=== PATIENT | female | born 1945 | race Caucasian/White ===

== ENCOUNTER → 2018-12-30 | Outpatient (CLI) | payer MEDICARE, BC ==
[~2018-12-30] MED LIST: ALLEGRA-D TABLE1 TAB PO; ANTIVERT 25MG25 MG PO; APRESOLINE 25MG25 MG PO; ASPIRIN 32325 MG/TAB PO; BACTRIM DS 8001 TAB PO; CATAPRES 0.1MG0.1 MG PO; CIPRO750 MG PO; CLEOCIN HCL300 MG PO; COUMADIN 3MG3 MG/TAB PO; FERRO-TIME325 MG PO; KENALOG DENTAL P5 GM DT; LISINOPRIL10 MG PO; LOPRESSOR 225 MG/TAB PO; LOPRESSOR 550 MG/TAB PO; LORTAB 7.5/5001 TAB PO; METOPROLOL; MVI PO; NORCO 325 MG-51 TAB PO; NORVASC 5MG5 MG/TAB PO; NORVASC2.5 MG PO; PRINIVIL40 MG PO; TAPAZOLE5 MG PO; TRANSDERM-0.5 MG/21 TD; TRIAM/HCTZ; VALIUM 5MG T5 MG/TAB PO; ZESTRIL 10MG10 MG PO; ZESTRIL40 MG PO; ZOFRAN 4MG T4 MG/TAB PO; ZOFRAN ODT4 MG PO
== END ==
LOC: ZCOL.LAB 10:06
DX: L97.909 Non-pressure chronic ulcer of unspecified part of unspecified lower leg with unspecified severity (principal)

== ENCOUNTER → 2019-02-17 | Outpatient (CLI) | payer MEDICARE, BC | LOC: ZCOL.LAB 11:54 | DX: L97.909 Non-pressure chronic ulcer of unspecified part of unspecified lower leg with unspecified severity (principal) ==

== ENCOUNTER → 2019-09-18 | Outpatient (CLI) | payer MEDICARE, BC | LOC: ZCOL.LAB 16:53 | DX: L97.909 Non-pressure chronic ulcer of unspecified part of unspecified lower leg with unspecified severity (principal); T14.8XXA Other injury of unspecified body region, initial encounter ==

== ENCOUNTER 2019-09-28 16:55 | Inpatient (IN) | payer MEDICARE, BC ==
[~2019-09-28] VITALS: Ht 177.8 cm; Wt 66.5 kg
[2019-09-28 17:18] LABS: BASO % 0.4 % (0.0-2.0); EOS # 0.1 (0.0-0.7); EOS % 1.3 % (0-4.0); GRAN # 7.5 (1.4-6.5); GRAN % 71.6 % (42.2-75.2); HEMATOCRIT 39.9 % (37.0-47.0); HEMOGLOBIN 12.8 g/dl (12.5-16.0); LYMPH # 2.3 (1.2-3.4); MEAN CELL VOLUME 85 fl (80.0-100.0); MEAN CORPUSCULAR HEMOGLOBIN 27 pg (27.0-31.0); MEAN CORPUSCULAR HGB CONC 32 g/dl (33.0-37.0); MEAN PLATELET VOLUME 8.9 fl (7.4-10.4); MONO # 0.5 (0.1-0.6); MONO % 4.3 % (1.7-9.3); PLATELET COUNT 313 K/mm3 (130-400); RED BLOOD COUNT 4.72 M/mm3 (4.10-5.30); REDCELL DISTRIBUTION WIDTH-CV 14.3 % (11.5-14.5)
[2019-09-28 17:36] LABS: ALANINE AMINOTRANSFERASE 15 U/L (4-34); ALBUMIN 4.3 gm/dL (3.5-5.0); ALKALINE PHOSPHATASE 127 U/L (50-136); ANION GAP 10 mmol/L (7-16); AST,SGOT 29 U/L (15-37); BILIRUBIN,TOTAL 0.5 mg/dL (0.0-1.0); BLOOD UREA NITROGEN 27 mg/dL (7-17); CALCIUM 10.6 mg/dL (8.4-10.2); CARBON DIOXIDE 18 mmol/L (22-30); CHLORIDE 101 mmol/L (98-107); CREATININE, serum 2.21 (0.52-1.25); GLUCOSE 145 mg/dL (74-106); LIPASE 325 U/L (23-300); MAGNESIUM 2.8 mg/dL (1.6-2.3); SODIUM 129 mmol/L (137-145); TOTAL PROTEIN 7.9 gm/dL (6.4-8.2)
[2019-09-28 17:38] LABS: C-REACTIVE PROTEIN < 0.5 mg/dL (0.0-0.9); POTASSIUM 5.8 mmol/L (3.4-5.0)
[2019-09-28] MEDS ORDERED: NORMODYNE100 MG PO (20:59)
[2019-09-28] MEDS ORDERED: ANTIVERT 25MG25 MG PO (21:00)
--- NOTE | 2019-09-28 21:19 | NUR ---
Pt arrived to floor at 2039 from ED. Assessment completed and documented. Pt alert and oriented x4. Pt oriented to room and call light. Denies pain at this time. Skin assessment completed documented. IV to left ac patent and without complications. Pt is currently on the bedside commode and is having a large amount of liquid bowel movement with a very small amount of solid bowel. States she would like to sit on the commode a little while longer. Call light within reach. Will continue to monitor.
--- NOTE | 2019-09-28 21:24 | NUR ---
BG 67 AT THIS TIME. APPLE JUICE GIVEN
[2019-09-28 21:54] VITALS: BP 171/57; PULSE 57; TEMP 97.6
[2019-09-28 22:20] LABS: CALCIUM 9.7 mg/dL (8.4-10.2); CREATININE, serum 1.94 (0.52-1.25); POTASSIUM 4.5 mmol/L (3.4-5.0)
[2019-09-29] VITALS (7 sets, daily range): BP systolic 145–159; BP diastolic 47–63; PULSE 70–85; TEMP 97.8–98.7
[2019-09-29 00:54] LABS: CALCIUM 9.3 mg/dL (8.4-10.2); CREATININE, serum 1.94 (0.52-1.25); POTASSIUM 4.6 mmol/L (3.4-5.0)
--- NOTE | 2019-09-29 05:15 | NUR ---
Pt rested on and off throughout the night. Pt up to bedside commode twice during the night and had two very large watery bowel movements with a small amount of solid bowel. Complaints of lower abdominal pain that was rated 1/10. Pt stated pain was tolerable and that she did not want anything for pain. IVF infusing per orders to left ac IV site. Pt denies any other needs. Bed alarm on. Call light within reach.
[2019-09-29 07:15] LABS: CALCIUM 8.7 mg/dL (8.4-10.2); CREATININE, serum 1.81 (0.52-1.25); POTASSIUM 4.8 mmol/L (3.4-5.0)
[2019-09-29 07:23] LABS: BASO % 0.2 % (0.0-2.0); EOS % 0.1 % (0-4.0); GRAN # 16.2 (1.4-6.5); GRAN % 87.7 % (42.2-75.2); HEMOGLOBIN 11.2 g/dl (12.5-16.0); LYMPH # 1.5 (1.2-3.4); LYMPH % 8.1 % (20.0-51.0); MEAN CELL VOLUME 86 fl (80.0-100.0); MEAN CORPUSCULAR HEMOGLOBIN 28 pg (27.0-31.0); MEAN CORPUSCULAR HGB CONC 33 g/dl (33.0-37.0); MEAN PLATELET VOLUME 9.2 fl (7.4-10.4); MONO # 0.6 (0.1-0.6); MONO % 3.5 % (1.7-9.3); PLATELET COUNT 256 K/mm3 (130-400); REDCELL DISTRIBUTION WIDTH-CV 14.4 % (11.5-14.5)
--- NOTE | 2019-09-29 07:23 | NUR ---
Report given to NICKOLAS Paige
[2019-09-29 07:38] LABS: HEMATOCRIT 34.4 % (37.0-47.0)
--- NOTE | 2019-09-29 10:34 | NUR ---
Assessment complete. Patient sitting up in bed, she is alert and oriented. Friend is currently at the bed side and had provided her home medications, will add to medication rec. She states she is feeling much better than she did yesterday. States she is passing gas. Did not want to take laxitives due to the large amount of stool she passed last night. Assessed her wounds, they are closed and CD&I. Dressing on left barker is intact and fresh from overnight. Abdomen is still firm and slightly distended at this time but patient states it has improved very much since yesterday. No other needs were expressed at this time. Call light is in reach. Will continue to monitor.
[2019-09-29] MEDS ORDERED: TRANSDERM-0.5 MG/21 TD (11:01)
--- NOTE | 2019-09-29 13:45 | NUR ---
SW met with the patient to discuss discharge plan. The patient lives alone in [place]. She states that she has a friend, Matt Florentino (ph#[phone]), that lives in [place] that helps her. She reports independence with ADLs and has a cane and walker. The patient's PCP is Dr. Javon Null and she receives her medications at [facility]. She reports no difficulties obtaining her meds. The patient's advanced directives are in EMR. Her DPOA-HC is her friend, Jase Bond (ph#[phone]). Jase lives in [place]. PT is not recommending any services. OT recommended home health. SW discussed this with the patient. The patient reports that she is not interested in any home health and does not feel like she has a need for it at this time. The patient plans to return home upon discharge with transport provided by her friend, Matt. No additional needs at this time.
--- NOTE | 2019-09-29 17:39 | NUR ---
Pt has had no complaints through the day left AC IV site began to bother and was begining to become edematous and pink, this IV was removed and new was placed in her Right forarm. New IV flushed well and pt was experiencing minimal pain. Continuing to monitor. Offered pt warm press or ice pack for tender AC site, she refused this stating she did not need it. States she gets some gas pain but it is relieved when she releases/passes gas. Abdomen is still a little distended. No other needs were expressed at this time. call light is in reach.
[2019-09-29 21:31] LABS: COLLECTION METHOD CATHETER
[2019-09-29 21:44] LABS: PH 5 (5-8); SQUAMOUS EPITHELIAL None Seen /hpf; URINE APPEARANCE Clear; URINE BACTERIA Rare /hpf; URINE BILIRUBIN Negative (NEGATIVE); URINE BLOOD Negative (NEGATIVE); URINE COLOR Yellow; URINE GLUCOSE Negative (NEGATIVE); URINE KETONE Negative (NEGATIVE); URINE LEUKOCYTE ESTERASE Negative (NEGATIVE); URINE NITRATE Negative (NEGATIVE); URINE PROTEIN(semi-quant) Negative (NEGATIVE); URINE RBC 0-2 /hpf; URINE UROBILINOGEN Negative (NEGATIVE)
--- NOTE | 2019-09-29 23:54 | NUR ---
DRESSING CHANGED ON HER LEFT LEG. SMALL AMOUNT OF DRAINAGE NOTED ON THE OLD BANDAGE. CLEANSED WITH SALINE WATER AND NEW BANDAGE WAS APPLIED
[2019-09-30 03:29] VITALS: BP 164/62; PULSE 73; TEMP 98.4
--- NOTE | 2019-09-30 05:14 | NUR ---
PATIENT HAS BEEN RESTING THROUGH THE NIGHT. PATIENT DID HAVE A BOWEL MOVEMENT AT THE BEGINNING OF THE SHIFT AND SINCE THEN HAS NOT. PATIENT DID URINATE SO A URINE SAMPLE WAS OBTAINED AND SENT TO LAB. IV FLUIDS ARE INFUSING IN HER IV ON HER RIGHT FOREARM. PATIENT HAS DENIED ANY OTHER NEEDS. WILL REPORT OFF TO DAY SHIFT.
[2019-09-30 07:56] VITALS: BP 184/69; PULSE 83; TEMP 98.3
--- NOTE | 2019-09-30 08:23 | NUR ---
Assessment complete. Patient sitting up in bed with breakfast at this time. States she did not feel very well over night but has improved since this morning. Left AC site has improved since yesterday, minimal swelling and minor redness, pt states it feels much better. States she continues to have gas. Wounds on her legs are unchanged since yesterady, dressing is fresh from overnight. No signs of drainage. Denies pain or discomfort at this time. No other needs were expressed at this time. Call light is in reach. Will continue to monitor.
[2019-09-30 08:50] LABS: BASO % 0.3 % (0.0-2.0); EOS # 0.1 (0.0-0.7); EOS % 0.5 % (0-4.0); GRAN # 8.8 (1.4-6.5); HEMOGLOBIN 10.9 g/dl (12.5-16.0); LYMPH # 2.5 (1.2-3.4); LYMPH % 20.6 % (20.0-51.0); MEAN CELL VOLUME 87 fl (80.0-100.0); MEAN CORPUSCULAR HEMOGLOBIN 28 pg (27.0-31.0); MEAN CORPUSCULAR HGB CONC 32 g/dl (33.0-37.0); MEAN PLATELET VOLUME 8.9 fl (7.4-10.4); MONO # 0.6 (0.1-0.6); MONO % 5.2 % (1.7-9.3); PLATELET COUNT 237 K/mm3 (130-400); RED BLOOD COUNT 3.93 M/mm3 (4.10-5.30); REDCELL DISTRIBUTION WIDTH-CV 14.6 % (11.5-14.5)
[2019-09-30 09:04] LABS: CALCIUM 8.4 mg/dL (8.4-10.2); CREATININE, serum 1.21 (0.52-1.25); MAGNESIUM 1.6 mg/dL (1.6-2.3); POTASSIUM 3.9 mmol/L (3.4-5.0)
[2019-09-30 11:42] VITALS: BP 147/54; PULSE 67; TEMP 98
--- NOTE | 2019-09-30 14:47 | NUR ---
pT AMBULATED WELL TO THE RESTROOM AT THIS TIME VIA STANDY ASSIST USING HER CANE FROM HOME. GAIT WAS VERY STEADY, NO LOSS OF BALANCE. HAD LARGE SOFT FORMED BM. BACK IN CHAIR WITH PAZ ALARM IN PLACE. NO FURTHER NEEDS CALL LIGHT IS IN REACH.
[2019-09-30 16:02] VITALS: BP 158/73; PULSE 102; PULSE 73; TEMP 97.9; TEMP 98.3
--- NOTE | 2019-09-30 17:22 | NUR ---
LEFT NINO WOUND/ULCER DRESSING CHANGED, SCANT DRAINAGE. STERILE WATER USED TO CLEANSE. PT TOLERATED WELL NO REPORTS OF PAIN OR DISCOMFORT.
[2019-09-30 19:56] VITALS: BP 142/60; PULSE 72; TEMP 98.5
--- NOTE | 2019-09-30 20:00 | NUR ---
Report received from NICKOLAS Paige. A/Ox4. Denies any pain or discomfort at this time. Pt sitting up in recliner chair. Meds administered. SBA with use of cane to BR. IV to RFA intact with fluids infusing. Tele monitor in place. Needs met at this time. Call light within reach. Lt barker with dressing in place. Snacks provided to pt as requested.
--- NOTE | 2019-09-30 23:07 | NUR ---
Pt returned back to bed. made pt comfortable. Needs met. Call light within reach.
[2019-09-30 23:14] VITALS: BP 132/41; PULSE 70; TEMP 98.6
[2019-10-01 04:14] VITALS: BP 165/55; PULSE 71; TEMP 98.1
--- NOTE | 2019-10-01 07:07 | NUR ---
Report given to NICKOLAS Crystal.
[2019-10-01 07:41] VITALS: BP 154/66; PULSE 66; TEMP 98.6
[2019-10-01 08:26] LABS: BASO # 0.1 (0.0-0.2); BASO % 0.5 % (0.0-2.0); EOS # 0.2 (0.0-0.7); EOS % 2.1 % (0-4.0); GRAN # 6.6 (1.4-6.5); GRAN % 65.2 % (42.2-75.2); HEMOGLOBIN 10.5 g/dl (12.5-16.0); LYMPH # 2.5 (1.2-3.4); LYMPH % 25.1 % (20.0-51.0); MEAN CELL VOLUME 86 fl (80.0-100.0); MEAN CORPUSCULAR HEMOGLOBIN 27 pg (27.0-31.0); MEAN CORPUSCULAR HGB CONC 32 g/dl (33.0-37.0); MEAN PLATELET VOLUME 9.1 fl (7.4-10.4); MONO # 0.7 (0.1-0.6); MONO % 6.7 % (1.7-9.3); PLATELET COUNT 212 K/mm3 (130-400); RED BLOOD COUNT 3.83 M/mm3 (4.10-5.30); REDCELL DISTRIBUTION WIDTH-CV 14.7 % (11.5-14.5)
[2019-10-01 08:29] LABS: HEMATOCRIT 32.9 % (37.0-47.0)
[2019-10-01 08:36] LABS: CALCIUM 8.3 mg/dL (8.4-10.2); CREATININE, serum 0.97 (0.52-1.25); MAGNESIUM 1.6 mg/dL (1.6-2.3)
[2019-10-01] MEDS ORDERED: DOXYCYCLINE 10100 MG PO (10:04)
[2019-10-01] MEDS ORDERED: COLACE 100100 MG/CAP PO (10:08)
[2019-10-01] MEDS ORDERED: MIRALAX510G PO (10:08)
--- NOTE | 2019-10-01 11:00 | NUR ---
PT AOX4. DENIES PAIN. WOUND TO LEFT BELOW KNEE NINO WITH SEROSNAGUINOUS DRAINAGE, SMALL. WOUND BED DISCOLOURED DARK RED AND SLIGHTLY MUSHY. DRSNG CHANGED. PT DENIES PAIN TO SITE. LT LATERAL KNEE SCAB C/D/I. NO NEW CONCERNS
[2019-10-01 12:41] VITALS: BP 164/63; PULSE 64; TEMP 98.3
--- NOTE | 2019-10-01 15:30 | NUR ---
pt discharged to home @ 1450 accompanied by friend Matt. forgot home meds in hosp and picked them up at ER entrance nurse. no new concerns. steady independent ambulation with home cane.
== END 2019-10-01 14:50 | disposition home or self-care (01) | DRG 683 ==
LOC: COL.ER 16:55 → MEDICAL 19:03
PROVIDERS: Emergency Medicine; Nurse Practitioner Family; Physician Assistant; ADMIT Hospitalist
DX: N17.9 Acute kidney failure, unspecified (principal); E87.1 Hypo-osmolality and hyponatremia; L97.929 Non-pressure chronic ulcer of unspecified part of left lower leg with unspecified severity; Z66 Do not resuscitate; K59.01 Slow transit constipation; E86.0 Dehydration; N18.3 Chronic kidney disease, stage 3 (moderate); I12.9 Hypertensive chronic kidney disease with stage 1 through stage 4 chronic kidney disease, or unspecified chronic kidney disease; E87.5 Hyperkalemia; E83.52 Hypercalcemia; R73.9 Hyperglycemia, unspecified; N63.42 Unspecified lump in left breast, subareolar; N63.41 Unspecified lump in right breast, subareolar; E78.5 Hyperlipidemia, unspecified; H81.09 Meniere's disease, unspecified ear; Z79.82 Long term (current) use of aspirin; Z88.0 Allergy status to penicillin; Z88.8 Allergy status to other drugs, medicaments and biological substances; E83.42 Hypomagnesemia; E05.90 Thyrotoxicosis, unspecified without thyrotoxic crisis or storm
CPT/HCPCS: 99223-AI; 99232-AI; 99239; J0610; J1644; J1815; J2270; J2405; J2550; J3475; J7030

== ENCOUNTER → 2020-07-25 | Outpatient (CLI) | payer MEDICARE, BC ==
[~2020-07-25] MED LIST changes: +ASPIRIN E.C. 8181 MG PO; +COLACE 100100 MG/CAP PO; +DOXYCYCLINE 10100 MG PO; +DOXYCYCLINE HY100 MG PO; +DUO-KAPS1 CAP PO; +FERROUS SU325 MG/TAB PO; +LIPITOR 80MG80 MG PO; +MIRALAX510G PO; +NORMODYNE100 MG PO; +OSCAL 500 TAB500 MG PO; +PLAVIX 75MG TAB75 MG PO; +ROXICODONE 55 MG/TAB PO; +TYLENOL 325MG325 MG PO; +VITAMIN C500 MG PO
== END ==
LOC: ZCOL.LAB 16:07
DX: I83.009 Varicose veins of unspecified lower extremity with ulcer of unspecified site (principal)

== ENCOUNTER 2020-08-01 12:23 | Emergency (ER) | payer MEDICARE, BC ==
[~2020-08-01] VITALS: Ht 172.7 cm; Wt 68.2 kg
[~2020-08-01 12:23] MED LIST changes: -ASPIRIN E.C. 8181 MG PO; -DOXYCYCLINE HY100 MG PO; -DUO-KAPS1 CAP PO; -FERROUS SU325 MG/TAB PO; -LIPITOR 80MG80 MG PO; -OSCAL 500 TAB500 MG PO; -PLAVIX 75MG TAB75 MG PO; -ROXICODONE 55 MG/TAB PO; -TYLENOL 325MG325 MG PO; -VITAMIN C500 MG PO
[2020-08-01 12:24] VITALS: TEMP 96.4
[2020-08-01 12:55] LABS: BASO # 0.1 (0.0-0.2); BASO % 0.6 % (0.0-2.0); EOS # 0.3 (0.0-0.7); EOS % 2.8 % (0-4.0); GRAN % 77.2 % (42.2-75.2); HEMOGLOBIN 10.6 g/dl (12.5-16.0); LYMPH # 1.3 (1.2-3.4); LYMPH % 14.1 % (20.0-51.0); MEAN CELL VOLUME 84 fl (80.0-100.0); MEAN CORPUSCULAR HEMOGLOBIN 27 pg (27.0-31.0); MEAN CORPUSCULAR HGB CONC 33 g/dl (33.0-37.0); MEAN PLATELET VOLUME 8.5 fl (7.4-10.4); MONO # 0.5 (0.1-0.6); MONO % 5.1 % (1.7-9.3); PLATELET COUNT 259 K/mm3 (130-400); RED BLOOD COUNT 3.89 M/mm3 (4.10-5.30); REDCELL DISTRIBUTION WIDTH-CV 14.2 % (11.5-14.5)
[2020-08-01 12:56] LABS: HEMATOCRIT 32.5 % (37.0-47.0)
[2020-08-01 13:07] LABS: ALBUMIN 3.7 gm/dL (3.5-5.0); BILIRUBIN,TOTAL 0.2 mg/dL (0.0-1.0); CALCIUM 8.8 mg/dL (8.4-10.2); CREATININE, serum 1.82 (0.52-1.25); POTASSIUM 4.4 mmol/L (3.4-5.0); TOTAL PROTEIN 6.9 gm/dL (6.4-8.2)
[2020-08-01 16:04] VITALS: BP 164/79; PULSE 60
[2020-12-23] MEDS ORDERED: FERROUS SU325 MG/TAB PO (10:50)
[2020-12-23] MEDS ORDERED: PLAVIX 75MG TAB75 MG PO (10:50)
[2020-12-23] MEDS ORDERED: LIPITOR 80MG80 MG PO (10:51)
[2020-12-23] MEDS ORDERED: ASPIRIN E.C. 8181 MG PO (10:52)
[2020-12-23] MEDS ORDERED: TYLENOL 325MG325 MG PO (10:52)
[2020-12-23] MEDS ORDERED: OSCAL 500 TAB500 MG PO (10:53)
[2020-12-23] MEDS ORDERED: DUO-KAPS1 CAP PO (10:54)
[2020-12-23] MEDS ORDERED: VITAMIN C500 MG PO (10:54)
[2020-12-23] MEDS ORDERED: DOXYCYCLINE HY100 MG PO (10:55)
[2020-12-23] MEDS ORDERED: ROXICODONE 55 MG/TAB PO (13:47)
== END 2020-08-01 15:15 | disposition home or self-care (01) ==
LOC: COL.ER 12:23
PROVIDERS: Family Medicine
DX: H81.09 Meniere's disease, unspecified ear (principal); E86.0 Dehydration; I12.9 Hypertensive chronic kidney disease with stage 1 through stage 4 chronic kidney disease, or unspecified chronic kidney disease; N18.30 Chronic kidney disease, stage 3 unspecified; E78.5 Hyperlipidemia, unspecified; E05.90 Thyrotoxicosis, unspecified without thyrotoxic crisis or storm; Z88.0 Allergy status to penicillin; Z79.899 Other long term (current) drug therapy
CPT/HCPCS: J2405; J2550; J7120

== ENCOUNTER → 2020-10-11 | Outpatient (CLI) | payer MEDICARE, BC ==
[~2020-10-11] MED LIST changes: +ASPIRIN E.C. 8181 MG PO; +DOXYCYCLINE HY100 MG PO; +DUO-KAPS1 CAP PO; +FERROUS SU325 MG/TAB PO; +LIPITOR 80MG80 MG PO; +OSCAL 500 TAB500 MG PO; +PLAVIX 75MG TAB75 MG PO; +ROXICODONE 55 MG/TAB PO; +TYLENOL 325MG325 MG PO; +VITAMIN C500 MG PO
== END ==
LOC: COL.RAD 12:13
DX: L97.909 Non-pressure chronic ulcer of unspecified part of unspecified lower leg with unspecified severity (principal); Z98.890 Other specified postprocedural states

== ENCOUNTER 2020-12-11 07:15 | Emergency (ER) | payer MEDICARE, BC ==
[~2020-12-11] VITALS: Ht 177.8 cm; Wt 63.6 kg
[~2020-12-11 07:15] MED LIST changes: -ASPIRIN E.C. 8181 MG PO; -DOXYCYCLINE HY100 MG PO; -DUO-KAPS1 CAP PO; -FERROUS SU325 MG/TAB PO; -LIPITOR 80MG80 MG PO; -OSCAL 500 TAB500 MG PO; -PLAVIX 75MG TAB75 MG PO; -ROXICODONE 55 MG/TAB PO; -TYLENOL 325MG325 MG PO; -VITAMIN C500 MG PO
[2020-12-11 07:18] VITALS: TEMP 97.7
[2020-12-11 07:38] LABS: BASO # 0.1 (0.0-0.2); BASO % 0.9 % (0.0-2.0); EOS # 0.4 (0.0-0.7); EOS % 4.9 % (0-4.0); GRAN # 5.2 (1.4-6.5); GRAN % 57.9 % (42.2-75.2); HEMOGLOBIN 11.4 g/dl (12.5-16.0); LYMPH # 2.5 (1.2-3.4); LYMPH % 28.1 % (20.0-51.0); MEAN CELL VOLUME 87 fl (80.0-100.0); MEAN CORPUSCULAR HEMOGLOBIN 28 pg (27.0-31.0); MEAN CORPUSCULAR HGB CONC 32 g/dl (33.0-37.0); MEAN PLATELET VOLUME 8.7 fl (7.4-10.4); MONO # 0.7 (0.1-0.6); PLATELET COUNT 334 K/mm3 (130-400); RED BLOOD COUNT 4.08 M/mm3 (4.10-5.30); REDCELL DISTRIBUTION WIDTH-CV 14.4 % (11.5-14.5)
[2020-12-11 07:40] LABS: HEMATOCRIT 35.6 % (37.0-47.0)
[2020-12-11 07:49] LABS: ALANINE AMINOTRANSFERASE 10 U/L (4-34); ALBUMIN 4.1 gm/dL (3.5-5.0); ALKALINE PHOSPHATASE 76 U/L (50-136); ANION GAP 9 mmol/L (7-16); AST,SGOT 22 U/L (15-37); BILIRUBIN,TOTAL 0.3 mg/dL (0.0-1.0); BLOOD UREA NITROGEN 16 mg/dL (7-17); CALCIUM 9.4 mg/dL (8.4-10.2); CARBON DIOXIDE 22 mmol/L (22-30); CHLORIDE 107 mmol/L (98-107); CREATININE, serum 1.19 (0.52-1.25); GLUCOSE 130 mg/dL (74-106); LIPASE 129 U/L (23-300); POTASSIUM 4.4 mmol/L (3.4-5.0); SODIUM 138 mmol/L (137-145); TOTAL PROTEIN 7.3 gm/dL (6.4-8.2)
[2020-12-11 07:50] LABS: C-REACTIVE PROTEIN < 0.5 mg/dL (0.0-0.9)
[2020-12-11 08:13] LABS: COLLECTION METHOD CLEAN CATCH
[2020-12-11 08:23] LABS: PH 7 (5-8); SQUAMOUS EPITHELIAL None Seen /hpf; URINE APPEARANCE Clear; URINE BACTERIA None Seen /hpf; URINE BILIRUBIN Negative (NEGATIVE); URINE BLOOD Negative (NEGATIVE); URINE COLOR Straw; URINE GLUCOSE Negative (NEGATIVE); URINE KETONE Negative (NEGATIVE); URINE LEUKOCYTE ESTERASE Negative (NEGATIVE); URINE NITRATE Negative (NEGATIVE); URINE PROTEIN(semi-quant) Negative (NEGATIVE); URINE RBC 0-2 /hpf; URINE UROBILINOGEN Negative (NEGATIVE)
[2020-12-11] MEDS ORDERED: ZOFRAN ODT4 MG PO (08:28)
[2020-12-11 08:53] VITALS: BP 163/94; PULSE 61
[2020-12-23] MEDS ORDERED: FERROUS SU325 MG/TAB PO (10:50)
[2020-12-23] MEDS ORDERED: PLAVIX 75MG TAB75 MG PO (10:50)
[2020-12-23] MEDS ORDERED: LIPITOR 80MG80 MG PO (10:51)
[2020-12-23] MEDS ORDERED: ASPIRIN E.C. 8181 MG PO (10:52)
[2020-12-23] MEDS ORDERED: TYLENOL 325MG325 MG PO (10:52)
[2020-12-23] MEDS ORDERED: OSCAL 500 TAB500 MG PO (10:53)
[2020-12-23] MEDS ORDERED: DUO-KAPS1 CAP PO (10:54)
[2020-12-23] MEDS ORDERED: VITAMIN C500 MG PO (10:54)
[2020-12-23] MEDS ORDERED: DOXYCYCLINE HY100 MG PO (10:55)
[2020-12-23] MEDS ORDERED: ROXICODONE 55 MG/TAB PO (13:47)
== END 2020-12-11 09:02 | disposition home or self-care (01) ==
LOC: COL.ER 07:15
PROVIDERS: Family Medicine
DX: K52.9 Noninfective gastroenteritis and colitis, unspecified (principal); I10 Essential (primary) hypertension; Z79.899 Other long term (current) drug therapy
CPT/HCPCS: J2405; J7120

== ENCOUNTER → 2021-03-03 | Outpatient (CLI) | payer MEDICARE, BC ==
[~2021-03-03] MED LIST changes: +ASPIRIN E.C. 8181 MG PO; +DOXYCYCLINE HY100 MG PO; +DUO-KAPS1 CAP PO; +FERROUS SU325 MG/TAB PO; +LIPITOR 80MG80 MG PO; +OSCAL 500 TAB500 MG PO; +PLAVIX 75MG TAB75 MG PO; +ROXICODONE 55 MG/TAB PO; +TYLENOL 325MG325 MG PO; +VITAMIN C500 MG PO
== END ==
LOC: ZCOL.LAB 17:43
DX: I83.009 Varicose veins of unspecified lower extremity with ulcer of unspecified site (principal)

== ENCOUNTER 2021-03-27 06:28 | Emergency (ER) | payer MEDICARE, BC ==
[~2021-03-27] VITALS: Ht 177.8 cm; Wt 58.2 kg
[2021-03-27 06:30] VITALS: TEMP 97.2
[2021-03-27 06:44] LABS: BASO # 0.1 K/mm3 (0.0-0.2); BASO % 0.7 % (0.0-2.0); EOS # 0.2 K/mm3 (0.0-0.7); EOS % 2.6 % (0.0-4.0); GRAN % 54.1 % (42.2-75.2); HEMOGLOBIN 11.1 g/dl (12.5-16.0); LYMPH # 3.3 K/mm3 (1.2-3.4); LYMPH % 35.8 % (20.0-51.0); MEAN CELL VOLUME 82 fl (80.0-100.0); MEAN CORPUSCULAR HEMOGLOBIN 27 pg (27-31); MEAN CORPUSCULAR HGB CONC 33 g/dl (33.0-37.0); MEAN PLATELET VOLUME 9.2 fl (7.4-10.4); MONO # 0.6 K/mm3 (0.1-0.6); MONO % 6.6 % (1.7-9.3); PLATELET COUNT 237 K/mm3 (130-400); RED BLOOD COUNT 4.08 M/mm3 (4.10-5.30); REDCELL DISTRIBUTION WIDTH-CV 15.3 % (11.5-14.5)
[2021-03-27 06:48] LABS: HEMATOCRIT 33.5 % (37.0-47.0)
[2021-03-27 06:57] LABS: BILIRUBIN,TOTAL 0.3 mg/dL (0.2-1.2); C-REACTIVE PROTEIN 0.13 mg/dL (0.00-0.50); CALCIUM 8.5 mg/dL (8.4-10.2); CREATININE, serum 1.52 mg/dL (0.57-1.11); POTASSIUM 4.7 mmol/L (3.5-4.5); TOTAL PROTEIN 5.8 gm/dL (6.2-8.1)
[2021-03-27] MEDS ORDERED: ANTIVERT 25MG25 MG PO (07:50)
--- NOTE | 2021-03-27 10:51 | NUR ---
SW contact by staffing branch manager on the patient needing a ride home. staffing branch manager unable to reach Matt Florentino who the patient states is the best contact x3 and unable to reach alternate contact as well. Matt's resides at [facility]. I contacted the facility and was able to reach Matt. Matt states he can be here in 30 minutes to pick the patient up and take her home. senior staff accountant and patient notifed that Matt will pick her up.
[2021-03-27 10:55] VITALS: BP 146/78; PULSE 94
== END 2021-03-27 10:55 | disposition home or self-care (01) ==
LOC: COL.ER 06:28
PROVIDERS: Emergency Medicine
DX: R42 Dizziness and giddiness (principal); I10 Essential (primary) hypertension; E78.5 Hyperlipidemia, unspecified; E05.90 Thyrotoxicosis, unspecified without thyrotoxic crisis or storm; D64.9 Anemia, unspecified; Z79.899 Other long term (current) drug therapy; Z79.02 Long term (current) use of antithrombotics/antiplatelets; Z86.69 Personal history of other diseases of the nervous system and sense organs
CPT/HCPCS: J2405; J2550; J7030

== ENCOUNTER → 2021-05-28 | Outpatient (CLI) | payer MEDICARE, BC | LOC: ZCOL.LAB 15:43 | DX: L08.9 Local infection of the skin and subcutaneous tissue, unspecified (principal); I83.009 Varicose veins of unspecified lower extremity with ulcer of unspecified site; T81.89XD Other complications of procedures, not elsewhere classified, subsequent encounter; L97.909 Non-pressure chronic ulcer of unspecified part of unspecified lower leg with unspecified severity ==

== ENCOUNTER → 2021-06-11 | Outpatient (CLI) | payer MEDICARE, BC | LOC: ZCOL.LAB 16:37 | DX: I83.009 Varicose veins of unspecified lower extremity with ulcer of unspecified site (principal); T81.89XD Other complications of procedures, not elsewhere classified, subsequent encounter; L97.909 Non-pressure chronic ulcer of unspecified part of unspecified lower leg with unspecified severity ==

== ENCOUNTER 2022-01-28 11:02 | Outpatient (RCR) | payer MEDICARE, BC ==
[~2022-01-28] VITALS: Ht 175.3 cm; Wt 56.6 kg
[2022-01-28 11:35] LABS: HEMOGLOBIN 9.7 g/dl (12.5-16.0)
[2022-01-28 13:24] VITALS: BP 166/71; PULSE 67; TEMP 98.1
[2022-01-28 13:39] VITALS: BP 172/78; PULSE 82; TEMP 97.3
[2022-01-28 13:54] VITALS: BP 172/78; PULSE 91; TEMP 97.1
[2022-01-28 14:24] VITALS: BP 162/70; PULSE 87; TEMP 97.6
[2022-01-28 14:57] VITALS: BP 144/62; PULSE 76; TEMP 97.8
[2022-01-28 15:57] LABS: HEMOGLOBIN 10.2 g/dl (12.5-16.0)
[2022-01-28 15:58] LABS: HEMATOCRIT 32.2 % (37.0-47.0)
== END 2022-01-28 15:59 ==
LOC: EUO 11:02
PROVIDERS: Internal Medicine
DX: D63.8 Anemia in other chronic diseases classified elsewhere (principal)
CPT/HCPCS: J7050; P9016

== ENCOUNTER 2022-02-02 11:27 | Day surgery (SDC) | payer MEDICARE, BC ==
[2022-02-02] VITALS (9 sets, daily range): BP systolic 138–191; BP diastolic 61–93; PULSE 66–88; TEMP 97.3–98.2
[~2022-02-02] VITALS: Ht 172.7 cm; Wt 61.1 kg
[2022-02-02] MEDS ORDERED: BONINE25 MG PO (12:05)
[2022-02-02] MEDS ORDERED: TRANSDERM-0.5 MG/21 TD (12:13)
[2022-02-02] MEDS ORDERED: CIPRO 500MG TA500 MG PO (18:29)
--- NOTE | 2022-02-02 18:30 | NUR ---
PT IS LAYING IN BED EATING DINNER AT THIS TIME. DENIES ANY OVERT PAIN. THE PATIENT IS A&O. NO CONCERNS AT THIS TIME.
--- NOTE | 2022-02-02 19:14 | NUR ---
Pt arrived from the OR to room 348, she is A/O x4. Her breathing is even and unlabored on 2L O2 via NC, reduced to 0.5L O2. Pain to RUE, improved with dose of Motrin. BLE wrapped, pt states she is being seen by wound care. SCD's in place. ANDI draining sanginous drainage, dressing CDI. Home BP meds given for elevated BP. Eating dinner at this time. Call light within reach.
[2022-02-03 00:06] VITALS: BP 132/45; PULSE 73; TEMP 97.7
[2022-02-03 03:53] VITALS: BP 147/52; PULSE 70; TEMP 97.9
--- NOTE | 2022-02-03 05:24 | NUR ---
THE PATIENT HAS HAD UNEVENTFUL NIGHT. DENIES SIGNIFICANT PAIN. FRIEND OF THE PATIENT "MARKUS" CALLED AND STATES THAT SHE IS GOING TO BE BRINGING THE PATIENT HOME AND HELPING HER. THIS RN SAID THAT WE WOULD DEFINITELY PASS THE INFORMATION ON TO THE HAND LACER AND THEY WOULD NEED TO TALK TO HER REGARDING PLANS BEING MADE FOR THE PATIENT. MARKUS: [phone]
[2022-02-03 07:37] VITALS: BP 160/62; PULSE 70; TEMP 98.5
--- NOTE | 2022-02-03 08:20 | NUR ---
Pt doing okay this morning. Pt was short with me stating that I was late with her medications as she was told they were scheduled at 0800. Informed her that I have other pts that also have medications scheduled at 8 and that i cannot be in every room at once. Pt was then adamant that I give her the normal parameter for a blood pressure for a friend of hers. I informed her that I could not do that because normal is different for everyone. Pt was not happy with this and stated that I just needed to write something down so she can help him. I did print off information on blood pressures, but again stated that he needs to follow up with his primary care doctor. Pt denies any other needs, awaiting breakfast at this time
--- NOTE | 2022-02-03 09:46 | NUR ---
Dr. Cabello contacted this SW. He informed ODELL that the patient has some social service concerns. She lives alone and lacks support. She is having a mastectomy done. Him and the patient's PCP would like to get home health set up for her upon discharge. ODELL met with the patient to discuss discharge plan. The patient lives alone in [place]. She states that she has friend support, when they are available. She reports independence with ADLs and has a cane, walker, and wheelchair. She states that she uses the cane. Her PCP is Dr. Null and [facility]. She states that her friends take her to her doctors appointments. The patient has a DPOA-HC in EMR that designates Jase Bond. The patient states that he has and she has completed a new one, designating her friend, Christiane Pozo (ph#[phone]), and that she did it with an patent prosecution attorney. She states that she believes Christiane provided the document to the [facility] office. ODELL contacted the [facility] office to inquire if they have a copy. The civil engineer helper reports that they do not have a new one on file. The patient plans to return home upon discharge. ODELL discussed getting home health services set up to assist with after care upon discharge. The patient states that she already has a laborer shellfish processing come in to assist with her wounds on her legs, but that she would be agreeable to getting home health set up. ODELL provided her with Medicare.gov's list of home health agencies that serve [place]. The patient chose [facility]. The patient states that one of her friends will be able to transport her home upon discharge. ODELL contacted and faxed a referral to Robert at [facility]. Robert reports that they are able to accept the patient. *Discharge plan: home with home health*
--- NOTE | 2022-02-03 11:17 | NUR ---
Asked pt if she has felt the urge to void. Pt reported that she does not. Pt has not been up yet for my shift. Assisted her up to the restroom. She was standby assist with cane and did well. Pt did void without difficulty. Pt now sitting up in the chair. Scheduled pain medication given, stating just starting to get a little achy. Pt reports that she is not ready to order lunch yet. Call light within reach, will continue to monitor
[2022-02-03 12:28] VITALS: BP 133/50; PULSE 75; TEMP 98.2
[2022-02-03] MEDS ORDERED: TYLENOL 500MG500 MG PO (16:30)
[2022-02-03] MEDS ORDERED: ROXICODONE 55 MG/TAB PO (16:30)
[2022-02-03 16:35] VITALS: BP 140/50; PULSE 76; TEMP 98.1
--- NOTE | 2022-02-03 16:50 | NUR ---
Reviewed discharge instructions with pt and her friend Vijaya. Pt verbalizes understanding. INT removed from left forearm. Gave education on how to care for her incision and the ANDI drain. Pt escorted out at this time
--- NOTE | 2022-02-04 08:30 | NUR ---
The patient discharged home yesterday afternoon, 02/04. ODELL notified Robert at [facility] today of the patient discharging and faxed her orders. Robert reports that they have a nurse going out to visit the patient today. She discharged with home health orders for wound care/PT/OT.
== END 2022-02-03 16:50 | disposition home health service (06) ==
LOC: SDCO 11:27 → SURG 16:33 → SDCO 02-03 16:50
DX: C50.911 Malignant neoplasm of unspecified site of right female breast (principal); I10 Essential (primary) hypertension; K21.9 Gastro-esophageal reflux disease without esophagitis; I25.2 Old myocardial infarction; Z79.899 Other long term (current) drug therapy
CPT/HCPCS: OP; J0690; J1100; J1170; J2250; J2405; J2704; J2795; J3010; J7120

== ENCOUNTER 2022-05-20 05:47 | Inpatient (IN) | payer MEDICARE, BC ==
[~2022-05-20] VITALS: Ht 175.3 cm; Wt 65.0 kg
[~2022-05-20 05:47] MED LIST changes: +ARIMIDEX1 MG PO; +BONINE25 MG PO; +CIPRO 500MG TA500 MG PO; +IBU600 MG PO; +MULTI VITAMINS1 TAB PO; +NATURAL IRON65 MG PO; +TYLENOL 500MG500 MG PO
[2022-05-20 06:19] LABS: HEMOGLOBIN 10.9 g/dl (12.5-16.0); MEAN CELL VOLUME 89 fl (80.0-100.0); MEAN CORPUSCULAR HEMOGLOBIN 27 pg (27-31); MEAN CORPUSCULAR HGB CONC 30 g/dl (33.0-37.0); MEAN PLATELET VOLUME 9.3 fl (7.4-10.4); PLATELET COUNT 254 K/mm3 (130-400); RED BLOOD COUNT 4.08 M/mm3 (4.10-5.30); REDCELL DISTRIBUTION WIDTH-CV 17.2 % (11.5-14.5)
[2022-05-20 06:21] LABS: INR 1.1 (0.8-3.0); PROTHROMBIN TIME 12.4 SECONDS (9.7-12.8)
[2022-05-20 06:22] LABS: HEMATOCRIT 36.2 % (37.0-47.0)
[2022-05-20 06:23] LABS: PARTIAL THROMBOPLASTIN TIME 31.3 SECONDS (26.0-37.0)
[2022-05-20 06:32] LABS: ALBUMIN 2.8 gm/dL (3.4-4.8); BILIRUBIN,TOTAL 0.2 mg/dL (0.2-1.2); CALCIUM 9.4 mg/dL (8.4-10.2); CREATININE, serum 2.47 mg/dL (0.57-1.11); POTASSIUM 5.1 mmol/L (3.5-4.5); TOTAL PROTEIN 6.9 gm/dL (6.2-8.1)
[2022-05-20 06:34] LABS: ARTERIAL BLD GAS O2 SATURATION 99.5 % (92-100); ARTERIAL BLD GAS TCO2 CT 30.4; ARTERIAL BLOOD GAS BASE EXCESS 1.7 (-2-2); ARTERIAL BLOOD GAS HCO3 28.7 meq/L (22-26); ARTERIAL BLOOD GAS PCO2 56.9 mmHg (35-45); ARTERIAL BLOOD GAS PO2 366.3 mmHg (80-100); ARTERIAL BLOOD GAS pH 7.32 (7.35-7.45)
[2022-05-20 06:41] LABS: TROPONIN-I 0.105 ng/mL (0.00-0.033)
[2022-05-20 06:44] LABS: ANISOCYTOSIS 1+; BAND 1 % (0-10); EOSINOPHIL 8 % (0-4); LYMPHOCYTE 18 % (20.0-51.0); NEUTROPHILS 69 % (42.0-75.2); PLATELET ESTIMATE NORMAL (NORMAL)
[2022-05-20 06:45] LABS: HYPOCHROMIA 3+
[2022-05-20 06:46] LABS: SCHISTOCYTES 1+
[2022-05-20 06:47] LABS: BURR CELLS 2+; OVALOCYTES 1+
[2022-05-20] MEDS ORDERED: CANCER MED (07:53)
[2022-05-20 13:20] VITALS: BP 139/77; PULSE 76; TEMP 97.8
[2022-05-20] MEDS ORDERED: KISQALI PO (13:31)
[2022-05-20 15:44] VITALS: BP 144/53; PULSE 74; TEMP 98
--- NOTE | 2022-05-20 16:00 | NUR ---
SPOKE WITH PATIENT AND INFORMED HER WE NEED TO COLLECT A ROUTINE URINE SAMPLE. WHEN ASKING THE PATIENT IF SHE IS ABLE TO TELL WHEN SHE NEEDS TO USE THE BATHROOM, SHE STATED " WELL SOMETIMES. BUT THAT IS SOMETHING THAT NEEDS TO BE DISSCUSSED WITH DR BURNHAM'S OFFICE, CAUSE THEY'RE THE ONES THAT STARTED IT!"
--- NOTE | 2022-05-20 16:30 | NUR ---
DRESSING TO LLE WOUNDS CHANGED BY THIS RN. PATIENT DENIES ANY PAIN. PER PATIENT SHE HAS A WOUND CARE NRUSE THAT COMES ONCE A WEEK TO "SCRUB HER WOUND." PATIENT ALSO MENTIONED HER WOUND NURSE GETS HER SUPPLIES ONLINE AND SHE IS UNSURE WHAT SHE USES. PATIENT HAS SOMETHING BLACK IN HER BELLY BUTTON. WHEN PULLING THE LOOSE SKIN OF THE TOP OF HER NAVAL, IT SHOWS IT BETTER. HOWEVER PATIENT GOT IRRATED AT RN FOR CHECKING IT AND STATED "LEAVE THAT, ITS FINE. THATS BEEN THERE LONGER THAN YOU'VE BEEN ALIVE." WHEN ASKED IF SHE WAS AWARE WHAT IT WAS, THE PATIENT REPLIED "JUST BUILD UP."
[2022-05-20 19:29] LABS: COLLECTION METHOD CATHETER
[2022-05-20 20:06] VITALS: BP 148/57; PULSE 82; TEMP 98.2
[2022-05-20 20:20] LABS: URINE APPEARANCE Clear (CLEAR/HAZY); URINE COLOR Yellow (YELLOW)
[2022-05-20 20:21] LABS: URINE BLOOD Negative (NEGATIVE); URINE GLUCOSE Negative (NEGATIVE); URINE KETONE Negative (NEGATIVE); URINE NITRATE Negative (NEGATIVE); URINE PROTEIN(semi-quant) 1+ (NEGATIVE); URINE UROBILINOGEN 0.2 E.U/dL (0.2-1.0)
[2022-05-20 20:22] LABS: MUCOUS Present (NOT PRESENT); SQUAMOUS EPITHELIAL None Seen /hpf (0-10); URINE BACTERIA None Seen /hpf (NONE SEEN)
[2022-05-20 23:53] VITALS: BP 115/59; PULSE 66; TEMP 97.8
--- NOTE | 2022-05-20 23:56 | NUR ---
Patient assesssed around 2039. Complained of pain all over and given PRN Acetaminophen. On oxygen at 2 L/min via NC. LS Coarse crackles. Patient aware that she is to have a thoracentesis tomorrow morning. Voices no questions, needs, or concerns. In bed with call light within reach.
[2022-05-21] VITALS (11 sets, daily range): BP systolic 112–153; BP diastolic 38–70; PULSE 66–81; TEMP 97.8–99.3
--- NOTE | 2022-05-21 07:46 | NUR ---
Assessment complete. A/O x3- stating June as the month. Pt with dyspnea at rest, breaths shallow. Weak cough. SpO2 87% on 3L/NC. Oxymask placed at 3L/oxymask per R.T. recommendation. R.T. now at bedside and replaced oxymask with NC at 4L. Pt reports feeling anxious. Dressings to left upper barker and and left ankle changed- xeroform with telfa and secured with kerlix to ankle and xeroform with telfa secured with tape on upper barker.
[2022-05-21 07:55] LABS: EOS # 0.5 K/mm3 (0.0-0.7); EOS % 11.9 % (0.0-4.0); GRAN # 2.6 K/mm3 (1.4-6.5); GRAN % 65.1 % (42.2-75.2); HEMOGLOBIN 10.1 g/dl (12.5-16.0); LYMPH # 0.7 K/mm3 (1.2-3.4); LYMPH % 16.1 % (20.0-51.0); MEAN CELL VOLUME 92 fl (80.0-100.0); MEAN CORPUSCULAR HEMOGLOBIN 27 pg (27-31); MEAN CORPUSCULAR HGB CONC 29 g/dl (33.0-37.0); MEAN PLATELET VOLUME 9.5 fl (7.4-10.4); MONO # 0.2 K/mm3 (0.1-0.6); MONO % 5.2 % (1.7-9.3); PLATELET COUNT 175 K/mm3 (130-400); RED BLOOD COUNT 3.77 M/mm3 (4.10-5.30); REDCELL DISTRIBUTION WIDTH-CV 17.2 % (11.5-14.5)
[2022-05-21 07:56] LABS: HEMATOCRIT 34.5 % (37.0-47.0)
[2022-05-21 08:03] LABS: CALCIUM 7.9 mg/dL (8.4-10.2); CREATININE, serum 1.88 mg/dL (0.57-1.11); MAGNESIUM 1.8 mg/dL (1.6-2.6); POTASSIUM 4.9 mmol/L (3.5-4.5)
--- NOTE | 2022-05-21 09:23 | NUR ---
Echo completed at bedside earlier this morning. Pt to Ultrasound via w/c for thoracentesis. Consent already signed.
--- NOTE | 2022-05-21 10:22 | NUR ---
Pt returns to room from thoracentesis. No report rec'd. A/O x4. Denies pain. Pt report her SOA has improved. LS still coarse. SpO2 100% 4L/NC. VSS- see flowsheet.
[2022-05-21 10:54] LABS: PLEURAL FLUID RBC 1000 /mm3 (0-0); PLEURAL FLUID WBC 258 /mm3
[2022-05-21 11:00] LABS: PLEURAL FLUID COLOR YELLOW
[2022-05-21 11:01] LABS: PLEURAL FLUID APPEARANCE CLEAR
--- NOTE | 2022-05-21 11:49 | NUR ---
Pt drowsy but easily arouses to voice. Respirations range 20-24 breaths per minute. O2 titrated to 2L/NC with SpO2 100%. Heel protectors placed on bilateral heels. Overlay mattress ordered and waiting for it to arrive. Continue post op monitoring- VSS- see flowsheet.
--- NOTE | 2022-05-21 12:10 | NUR ---
Unable to locate scopalamine patch that was placed yesterday. New patch applied to left upper chest and secured with tegaderm.
--- NOTE | 2022-05-21 13:09 | NUR ---
Pt continues to rest with her eyes closed. Arouses easily to voice. Respirations 24-28. SpO2 94% on 2L/NC of oxygen. Denies pain or needs at this time.
--- NOTE | 2022-05-21 14:56 | NUR ---
A palliative care consult was ordered. ODELL'sienna and Letty, green chainer, met with the patient. Letty explained her role and addressed the patient's cancer diagnosis. The patient shared what brought her into the hospital and how she is currently taking chemo pills for her cancer. Her cancer doctor is Dr. Aguedlo. Letty inquired how the patient felt in her cancer treatment course and if she is ready to focus more on comfort vs aggressive care. The patient states that she wants to stay the course. The patient reports that she believes the pain that she is having is from the wounds on her legs and the swelling, not cancer pain. The patient wants to continue her cancer treatment. ODELL then introduced oneself and role. The patient lives alone in [place]. She reports taking spit baths and has a cane and walker. She states has a budget consultant that comes in and provides wound care once a week. The patient's PCP is Dr. Javon Null. The patient provides that the DPOA-HC we have on file is old and she has completed a new one designating her friend, Christiane Pozo (ph#[phone]). PT has worked with the patient and recommend SNF. ODELL discussed this with the patient. The patient states, "this again." She is not interested or wants to go to a facility. She would like to think about it. ODELL then contacted the patient's friend, Christiane, and updated her on the above. Christiane confirms that she is the patient's DPOA-HC and she will bring a copy of the document to the hospital. Christiane states that this past week has been a horrible mess, with the patient calling her multiple times for help to use the restroom or to just get a glass of water. She states that she brought up alternate living options, but the patient became upset. Christiane states that she will talk to the patient about SNF as well and would like to be here tomorrow, when the doctor rounds. ODELL updated the hospitalist.
--- NOTE | 2022-05-21 14:59 | NUR ---
Met with Brooklyn Eng SS, Elliott SS regarding illness, her understanding and pt goals regarding continuing Chemo vs going hospice. She acknowledged that she knows it has spread to lungs and that fluid will continue building up in lung. She wishes to continue with and continue taking chemo. States she wants to go home, mentioned a couple friends that assist her. She is now on 02, her baseline was RA.
--- NOTE | 2022-05-21 18:31 | NUR ---
Pt declined supper meal- had lunch late this afternoon. Pt denies pain or needs. Respiration 20-24 per minute. Some SOA noted with talking/at rest. Pt reports overall that she feels she is able to breathe better since thoracentesis. VSS- see flowsheet. O2 2L/NC.
--- NOTE | 2022-05-21 22:43 | NUR ---
Patient assessed around 1934. Denies having pain and discomfort. Currently on oxygen at 2 L/min via NC. Reports SOB has gotten much better, denies at rest, but does continue to have some SOB with exertion. Did complain of headache around 2199 and given Acetaminophen as requested. Voices no further questions, needs, or concerns at this time. In bed with call light within reach. Bed alarm on.
[2022-05-22 03:18] VITALS: BP 145/87; PULSE 76; TEMP 98.9
--- NOTE | 2022-05-22 06:11 | NUR ---
Continues on oxygen at 2 L/min via NC. Voices no questions, needs, or concerns at this time. In bed with call light within reach. High fall risk precautions in place. Bed alarm on.
[2022-05-22 06:18] LABS: BASO % 0.5 % (0.0-2.0); EOS # 0.5 K/mm3 (0.0-0.7); EOS % 11.7 % (0.0-4.0); GRAN # 2.6 K/mm3 (1.4-6.5); GRAN % 63.7 % (42.2-75.2); LYMPH # 0.8 K/mm3 (1.2-3.4); LYMPH % 18.5 % (20.0-51.0); MEAN CELL VOLUME 90 fl (80.0-100.0); MEAN CORPUSCULAR HGB CONC 30 g/dl (33.0-37.0); MEAN PLATELET VOLUME 9.6 fl (7.4-10.4); MONO # 0.2 K/mm3 (0.1-0.6); MONO % 5.4 % (1.7-9.3); PLATELET COUNT 170 K/mm3 (130-400); RED BLOOD COUNT 3.39 M/mm3 (4.10-5.30); REDCELL DISTRIBUTION WIDTH-CV 16.9 % (11.5-14.5)
[2022-05-22 06:27] LABS: HEMATOCRIT 30.5 % (37.0-47.0); MEAN CORPUSCULAR HEMOGLOBIN 27 pg (27-31)
[2022-05-22 06:40] LABS: CALCIUM 7.4 mg/dL (8.4-10.2); CREATININE, serum 1.33 mg/dL (0.57-1.11); POTASSIUM 4.3 mmol/L (3.5-4.5)
[2022-05-22 07:15] VITALS: BP 138/59; PULSE 73; TEMP 98.4
--- NOTE | 2022-05-22 09:51 | NUR ---
Initial visit; Packing Line Operator listened and visited with Albertina who is confused and has been placed on Palliative Care. Albertina knows she isn't going to live a lot longer and is aware of her diagnosis. She just needed to talk and sort some things out. She is non-Gnosticist but seems to like company. She has no family and just a few friends. She lost her in November of this year she said. Packing Line Operator will follow up with Albertina who seemed a bit brighter and awake when Packing Line Operator left. She even had a bit of a smile on her face. Packing Line Operator wished her well and will continue to visit while Albertina is hospitalized.
[2022-05-22 11:21] VITALS: BP 139/48; PULSE 70; TEMP 98.4
--- NOTE | 2022-05-22 13:12 | NUR ---
The hospitalist notified ODELL that the patient is interested in hospice and that the patient's DPOA-HC, Christiane, and a friend are with the patient now. SW met with the patient, Christiane, and friend. SW addressed the above. SW discussed what it would like to transition to hospice vs if she was wanted to continue supportive/aggressive care. SW went over costs and what would be covered by insurance with both. Christiane and her friend shared how the patient cannot go home and is not safe at home anymore. The patient verbalized understanding. The patient states that she is not ready to transition to hospice yet. She would like to try and get stronger and look at getting back on her chemo pills after rehab. She verbalizes that if she is not getting stronger, than she can look at transitioning to hospice. The patient prefers [facility]. ODELL informed them how [facility] has been full, due to taking multiple patients from [facility]. The patient is open to sending referrals to the other local facilities. ODELL updated the hospitalist. ODELL contacted and faxed a referral to [facility], [facility], [facility], [facility], [facility], [facility], [facility], and [facility]. Klaudia, at [facility], reports that they will probably not have any room available until sometime next week. Sahara, at [facility], reports that they have declined the patient. ODELL also contacted Tracey, RN with Dr. Agudelo, to inquire if they are okay with the patient holding off on chemo during rehab. Tracey reports that Dr. Agudelo is okay with this. *Discharge plan: SNF. Referrals out and awaiting placement*
--- NOTE | 2022-05-22 13:21 | NUR ---
Dressing changed at this time to left distal leg. Left medial distal barker measures 4.7 cm x 1.4 cm, left medial ankle 4.8 cm x 3.8 cm, left distal anterior barker 4.4 cm x 2.5 cm. These 3 areas have red wound bed with slough, skin around the wounds are dry and flaking. Xeroform cut to wound size, nonadhering dressing placed on top and wrapped with jonh and taped to secure. Dressing changed to left anerior barker, just below the knee. This area measured 3.3 cm x 1.8 cm. Area is completely covered with a dark red almost black scab, with no open areas. Xeroform cut to wound size and nonadhering dressing placed on top and secured with tape. Pt denies pain to both wounds.
[2022-05-22 16:00] VITALS: BP 142/44; PULSE 65; TEMP 98
--- NOTE | 2022-05-22 16:13 | NUR ---
ODELL contacted [facility] to follow on if able to accept or not. Awaiting decision. Kalani, at [facility], reports that they are able to accept the patient on Wednesday.
--- NOTE | 2022-05-22 19:16 | NUR ---
PATIENT AWAKE AND ALERT, SITTING UP IN RELCINER. CHAIR ALARM ON. CALL LIGHT WITHIN REACH. IVF INFUSING PER ORDER. PATIENT REQUESTED TO STAY IN CHAIR BECAUSE SHE IS "STILL PICKING AT DINNER."
[2022-05-22 19:17] VITALS: BP 144/56; PULSE 53; TEMP 98.6
--- NOTE | 2022-05-22 20:30 | NUR ---
Initial shift assessment done- Pt sitting in chair, denies SOB or pain at this time, Alert/Oriented x4 at this time, IV fluids of NS at 75cc/hr, o2 at 2L/nc, states she is breathing alot better since her thoracentesis. has the 2 wounds to LLE- are all covered at this time.
[2022-05-22 23:03] VITALS: BP 131/60; PULSE 70; TEMP 98.1
[2022-05-23 03:29] VITALS: BP 133/58; PULSE 70; TEMP 98.2
--- NOTE | 2022-05-23 05:35 | NUR ---
Did sleep in the recliner all night, quiet night, States has a slight headache this morning- refused Tylenol,,states it doesnt work for her--gave 5 mg oxycodone instead
--- NOTE | 2022-05-23 06:45 | NUR ---
PATIENT ASLEEP, RESTING IN RECLINER. PER NIGHT RN, PATIENT REFUSED TO GET BACK INTO BED. CALL LIGHT WITH IN REACH.
[2022-05-23 07:20] VITALS: BP 160/56; PULSE 58; TEMP 98.2
--- NOTE | 2022-05-23 09:18 | NUR ---
MIK STILL REFUSING TO GET INTO BED AFTER BEING IN RECLINRE ALL DAY YESTERAY AND ALL NIGHT. EDUATED PATIENT IT WOULD BE GOOD FOR HER BOTTOM TO CHANE POSITIONS AFTER BEING IN THE CHAIR SO LONG WE COULD ASSIST HER MORE IN THE BED. PATIENT STILL REFUSED. WILL ATTEMPT AGAIN LATER.
--- NOTE | 2022-05-23 09:45 | NUR ---
SW INFORMED PATIENT IS REFUSING PLACEMENT AT THIS TIME. AND WE ARE HOPING TO SET UP FOR DISCHARGE.
--- NOTE | 2022-05-23 10:40 | NUR ---
PATIENT STANDBY ASSIST WITH WALKER. PATIENT AMBULATED TO SOTELO AND BACK TO ROOM TO THE TOILET. PATIENT VOIDED A GOOD AMOUNT AND ALSO HAD A BM. PATIENT DENIES ANY NEEDS OR COMPLAITNS AT THIS TIME. PATIETN WAS ASSITED BACK TO RECLINER. CALL LIGHT WITHIN REACH.
[2022-05-23 11:51] VITALS: BP 154/55; PULSE 67; TEMP 97.5
--- NOTE | 2022-05-23 12:05 | NUR ---
ODELL notified by that the patient is no longer willing to go to a SNF and wants to return home. Orders written for home with HH. Patient presented the [email or web address].gov list of home health agencies. Patient verbalizes that she would like to go with [facility] . Phone call made to Phong at [facility] to notify of the patients discharge. Clinical referral and discharge orders faxed to [facility] . Discharge plan: Home with [facility]
--- NOTE | 2022-05-23 13:50 | NUR ---
PATIENT GIVEN DISCHARGE INSTRUCTIONS AND EDUCATION. PATIENT REFUSED TO SIGN DISCHARGE EDUCATION BECAUSE SHE WAS UPSET. WHE PROVIDING EDUCAITON ON FOLLOW UP APT. PATIENT SAID 'WELL I HAVE A LIST OF OTHERS AT HOME AND THAT MAY NOT WORK." I TOLD HER 'OK SO WHEN YOU GET HOME AND CHECK YOUR LIST, IF SOMETHING ELSE IS SCHEDULED AND YOU ARE UNABLE TO MAKE IT, YOU WILL NEED TO CALL THE NUMBER LISTED TO CHANGE IT TO WHAT WORKS FOR YOU [id number]." PATIENT THEN GOT AGITATED AND STATED " WELL WHY DO I NEED TO DO THAT, THAT IS SOMETHING YOU GUYS SHOULD BE HANDLING!" I INFORMED THE PATIENT THAT CARDIOLOGY MAKES THEIR OWN FOLLOW UP APTS AND IT IS WEDNESDAY, I WOULD BE UNABLE TO CALL FOR HER. AND REMINDED HER WELL THAT SHE DEMANDED TO LEAVE TODAY, ON A WEDNESDAY.
--- NOTE | 2022-05-23 14:00 | NUR ---
IV REMOVED, PATIENT DRESSED BY 2 PCT. PATIENT TAKEN VIA WHEEL CHAIR BY PCT TO [facility] WHERE SHE LEFT IN STABLE CONDITION WITH HER "FRIEND."
--- NOTE | 2022-05-26 14:55 | NUR ---
SW made an APS report. IntakeID#[id number]
== END 2022-05-23 14:07 | disposition home health service (06) | DRG 189 ==
LOC: COL.ER 05:47 → MEDICAL 07:12
PROVIDERS: Emergency Medicine; Physician Assistant; ADMIT Internal Medicine
PROC: 0W993ZX Drainage of Right Pleural Cavity, Percutaneous Approach, Diagnostic (ICD-10-PCS; principal; 2022-05-21)
DX: J96.01 Acute respiratory failure with hypoxia (principal); I21.A1 Myocardial infarction type 2; J90 Pleural effusion, not elsewhere classified; N17.9 Acute kidney failure, unspecified; L97.921 Non-pressure chronic ulcer of unspecified part of left lower leg limited to breakdown of skin; J98.11 Atelectasis; Z66 Do not resuscitate; I50.32 Chronic diastolic (congestive) heart failure; G72.81 Critical illness myopathy; E78.5 Hyperlipidemia, unspecified; K59.00 Constipation, unspecified; E05.90 Thyrotoxicosis, unspecified without thyrotoxic crisis or storm; E03.9 Hypothyroidism, unspecified; E83.52 Hypercalcemia; D64.9 Anemia, unspecified; H81.09 Meniere's disease, unspecified ear; I44.7 Left bundle-branch block, unspecified; Z20.822 Contact with and (suspected) exposure to COVID-19; E87.5 Hyperkalemia; R73.9 Hyperglycemia, unspecified; E88.09 Other disorders of plasma-protein metabolism, not elsewhere classified; I11.0 Hypertensive heart disease with heart failure; M19.90 Unspecified osteoarthritis, unspecified site; I08.1 Rheumatic disorders of both mitral and tricuspid valves; I25.10 Atherosclerotic heart disease of native coronary artery without angina pectoris; Z85.3 Personal history of malignant neoplasm of breast; Z79.899 Other long term (current) drug therapy; Z90.11 Acquired absence of right breast and nipple; Z88.0 Allergy status to penicillin
CPT/HCPCS: J0456; J0696; J1644; J7030; J7050